=== PATIENT | female | born 1985 | race Caucasian/White ===

== ENCOUNTER 2019-12-04 11:35 | Emergency (ER) | payer BC ==
[2019-12-04 11:45] VITALS: BP 117/90
[2019-12-04] MEDS ORDERED: methylPREDNISolone Sodium Succinate 125 MG/2 ML SDV IM ONE (12:24)
[2019-12-04] MEDS ORDERED: Albuterol/Ipratropium 3.0-0.5 MG/3 ML Neb Soln NEB ONE (12:24)
--- NOTE | 2019-12-04 12:46 | EDM.PDOC ---
ED HPI GENERAL MEDICAL PROBLEM - General Chief Complaint: Respiratory Problem Stated Complaint: FLU Time Seen by Provider: 12/04/19 11:36 Source of Information: Reports: Patient History Limitations: Reports: No Limitations - History of Present Illness INITIAL COMMENTS - FREE TEXT/NARRATIVE: HISTORY AND PHYSICAL: History of present illness: Patient is a 34-year-old female who presents to the ED today with concern of cough and generalized body aches over the past 4 days. Patient states she has a history of asthma and has noticed that the cough is worsening her asthma symptoms. Patient states that she has increased use of her rescue inhaler and also uses her other inhalers to her at home. Patient denies any other symptoms or concerns. Patient denies fever, chills, chest pain, shortness of breath. Denies headache, neck stiff ness, change in vision, syncope, or near syncope. Denies nausea, vomiting, abdominal pain, diarrhea, constipation, or dysuria. Has not noted any blood in urine or stool. Patient has been eating and drinking appropriately. Review of systems: As per history of present illness and below otherwise all systems reviewed and negative. Past medical history: As per history of present illness and as reviewed below otherwise noncontributory. Surgical history: As per history of present illness and as reviewed below otherwise noncontributory. Social history: See social history for further information Family history: As per history of present illness and as reviewed below otherwise noncontributory. Physical exam: General: Patient is alert, oriented, and in no acute distress. Patient sitting comfortably on exam table. HEENT: Atraumatic, normocephalic, pupils equal and reactive bilaterally, negative for conjunctival pallor or scleral icterus, mucous membranes moist, TMs normal bilaterally, throat clear, neck supple, nontender, trachea midline. No drooling or trismus noted. No meningeal signs. No hot potato voice noted. Lungs: Clear to auscultation, breath sounds equal bilaterally, chest nontender. Dry cough on exam Heart: S1S2, regular rate and rhythm without overt murmur Abdomen: Soft, nondistended, nontender. Negative for masses or hepatosplenomegaly. Negative for costovertebral tenderness. Pelvis: Stable nontender. Genitourinary: Deferred. Rectal: Deferred. Skin: Intact, warm, dry. No lesions or rashes noted. Extremities: Atraumatic, negative for cords or calf pain. Neurovascular unremarkable. Neuro: Awake, alert, oriented. Cranial nerves II through XII unremarkable. Cerebellum unremarkable. Motor and sensory unremarkable throughout. Exam nonfocal. Notes: Patient's tachycardia did resolve after therapeutics. Discussed the importance for follow-up with a primary care provider. Voices understanding and is agreeable to plan of care. Denies any further questions or concerns at this time. Diagnostics: Influenza, CBC, CMP, serum hCG, chest x-ray, EKG Therapeutics: Duoneb, Solumedrol Prescription: Prednisone, Azithromycin Impression: Influenza B Right middle lobe lung opacity Asthma exacerbation Plan: 1. Take medication as prescribed. You can alternate ibuprofen and Tylenol as directed for pain and discomfort. 2. Follow-up with your primary care provider as discussed. Return to the ED as needed and as discussed. Definitive disposition and diagnosis as appropriate pending reevaluation and review of above. generalized Pain Score (Numeric/FACES): 4 - Related Data Allergies Allergy/AdvReac Type Severity Reaction Status Date / Time amoxicillin Allergy Itching Verified 12/04/19 11:45 animal dander Allergy Other Verified 12/04/19 11:45 Home Meds: Home Meds Budesonide/Formoterol Fumarate [Symbicort 80-4.5 MCG] 1 puff INH ASDIRECTED 03/20 [History] Montelukast [Singulair] 10 mg PO DAILY 12/04/19 [History] Non-Formulary Medication [NF Drug] 1 tab PO DAILY 12/04/19 [History] Past Medical History - Past Health History Medical/Surgical History: Denies Medical/Surgical History Respiratory History: Reports: Asthma Genitourinary History: Reports: Pyelonephritis [employer] History: Reports: - Infectious Disease History Infectious Disease History: Reports: Herpes - Past Surgical History HEENT Surgical History: Reports: Myringotomy w Tube(s), Oral Surgery Social & Family History - Family History Family Medical History: Noncontributory Cardiac: Reports: [place] - Tobacco Use Smoking Status *Q: Never Smoker - Recreational Drug Use Recreational Drug Use: No ED ROS GENERAL - Review of Systems Review Of Systems: Comprehensive ROS is negative, except as noted in HPI. ED EXAM, GENERAL - Physical Exam Exam: See Below (see dictation) Course - Vital Signs Last Recorded V/S: Last Vital Signs Temp 98.4 F 01/04/20 11:43 Pulse 100 12/04/19 13:23 Resp 20 12/04/19 13:23 BP 117/90 12/04/19 11:43 Pulse Ox 98 12/04/19 13:23 - Orders/Labs/Meds Orders: Active Orders 24 hr Category Date Time Status EKG Documentation Completion [RC] STAT Care 12/04/19 12:25 Active RT Aerosol Therapy [RC] ASDIRECTED Care 12/04/19 12:25 Active Labs: Laboratory Tests 12/04/19 12/04/19 12/04/19 Range/Units 12:31 12:31 12:31 WBC 3.20 L (4.0-11.0) K/uL RBC 4.80 (4.30-5.90) M/uL Hgb 14.2 (12.0-16.0) g/dL Hct 42.3 (36.0-46.0) % MCV 88.1 (80.0-98.0) fL MCH 29.6 (27.0-32.0) pg MCHC 33.6 (31.0-37.0) g/dL RDW Std Deviation 39.7 (28.0-62.0) fl RDW Coeff of Grace 12 (11.0-15.0) % Plt Count 182 (150-400) K/uL MPV 9.80 (7.40-12.00) fL Neut % (Auto) 55.0 (48.0-80.0) % Lymph % (Auto) 27.5 (16.0-40.0) % Hunt % (Auto) 13.8 (0.0-15.0) % Eos % (Auto) 3.4 (0.0-7.0) % Baso % (Auto) 0.3 (0.0-1.5) % Neut # (Auto) 1.8 (1.4-5.7) K/uL Lymph # (Auto) 0.9 (0.6-2.4) K/uL Hunt # (Auto) 0.4 (0.0-0.8) K/uL Eos # (Auto) 0.1 (0.0-0.7) K/uL Baso # (Auto) 0.0 (0.0-0.1) K/uL Nucleated RBC % 0.0 /100WBC Nucleated RBCs # 0 K/uL Sodium 138 (136-145) mmol/L Potassium 4.1 (3.5-5.1) mmol/L Chloride 103 (98-107) mmol/L Carbon Dioxide 24.1 (21.0-32.0) mmol/L BUN 15 (7.0-18.0) mg/dL Creatinine 1.0 (0.6-1.0) mg/dL Est Cr Clr Drug Dosing 72.29 mL/min Estimated GFR (MDRD) > 60.0 ml/min Glucose 111 H (74-106) mg/dL Calcium 8.9 (8.5-10.1) mg/dL Total Bilirubin 0.3 (0.2-1.0) mg/dL AST 21 (15-37) IU/L ALT 23 (14-63) IU/L Alkaline Phosphatase 45 L (46-116) U/L Total Protein 7.8 (6.4-8.2) g/dL Albumin 3.7 (3.4-5.0) g/dL Globulin 4.1 H (2.6-4.0) g/dL Albumin/Globulin Ratio 0.9 (0.9-1.6) HCG, Qual NEGATIVE (NEG) Meds: Medications Discontinued Medications Generic Name Dose Route Start Last Admin Trade Name Freq PRN Reason Stop Dose Admin Albuterol/Ipratropium 3 ml 12/04/19 12:24 12/04/19 12:32 Duoneb 3.0-0.5 Mg/3 Ml NEB 12/04/19 12:25 3 ml ONETIME ONE Administration Methylprednisolone Sodium Succinate 125 mg 12/04/19 12:24 12/04/19 13:22 Solu-Medrol IM 12/04/19 12:25 125 mg ONETIME ONE Administration Departure - Departure Time of Disposition: 14:36 Disposition: Home, Self-Care 01 Clinical Impression: Influenza B, Opacity of lung on imaging study Asthma exacerbation Qualifiers: Asthma severity: unspecified severity Asthma persistence: unspecified Qualified Code(s): J45.901 - Unspecified asthma with (acute) exacerbation - Discharge Information Referrals: Adriana Coto NP [Primary Care Provider] - Forms: ED Department Discharge Additional Instructions: The following information is given to patients seen in the emergency department who are being discharged to home. This information is to outline your options for follow-up care. We provide all patients seen in our emergency department with a follow-up referral. The need for follow-up, as well as the timing and circumstances, are variable depending upon the specifics of your emergency department visit. If you don't have a primary care physician on staff, we will provide you with a referral. We always advise you to contact your personal physician following an emergency department visit to inform them of the circumstance of the visit and for follow-up with them and/or the need for any referrals to a consulting specialist. The emergency department will also refer you to a specialist when appropriate. This referral assures that you have the opportunity for follow-up care with a specialist. All of these measure are taken in an effort to provide you with optimal care, which includes your follow-up. Under all circumstances we always encourage you to contact your private physician who remains a resource for coordinating your care. When calling for follow-up care, please make the office aware that this follow-up is from your recent emergency room visit. If for any reason you are refused follow-up, please contact the [facility] Emergency Department at and asked to speak to the emergency department charge nurse. [facility] [address] [place] [address] [id number] [id number] 1. Take medication as prescribed. You can alternate ibuprofen and Tylenol as directed for pain and discomfort. 2. Follow-up with your primary care provider as discussed. Return to the ED as needed and as discussed. Sepsis Event Note - Evaluation Sepsis Screening Result: No Definite Risk - Focused Exam Vital Signs: Vital Signs Temp Pulse Resp BP Pulse Ox 12/04/19 13:23 100 20 98 12/04/19 11:43 98.4 F 132 H 18 117/90 98 Date Exam was Performed: 12/04/19 Time Exam was Performed: 14:35 - My Orders Last 24 Hours: My Active Orders 12/04/19 12:25 EKG Documentation Completion [RC] STAT RT Aerosol Therapy [RC] ASDIRECTED - Assessment/Plan Last 24 Hours: My Active Orders 12/04/19 12:25 EKG Documentation Completion [RC] STAT RT Aerosol Therapy [RC] ASDIRECTED
[2019-12-04 13:05] LABS: BLOOD UREA NITROGEN,BUN 15 mg/dL (7.0-18.0); CARBON DIOXIDE,CO2 24.1 mmol/L (21.0-32.0); CHLORIDE,CL 103 mmol/L (98-107); GLUCOSE RANDOM 111 mg/dL (74-106); POTASSIUM,K 4.1 mmol/L (3.5-5.1); SODIUM,NA 138 mmol/L (136-145)
[2019-12-04 13:24] VITALS: PULSE 100
--- NOTE | 2019-12-04 14:18 | CR ---
HISTORY: Cough. FINDINGS: Two views of the chest are provided. There is slight streaky density seen at the right lung base medially and anteriorly which could represent early right middle lobe pneumonia. It is possible these findings could represent scarring. The upper portion of the right lung and left lung are clear. No findings for pleural effusion or pneumothorax. Cardiac silhouette size is within normal limits. IMPRESSION: Streaky opacity identified in the right middle lobe distribution which could represent early developing right middle lobe pneumonia. Alternative consideration would be possible scarring. Atelectasis is unlikely given normal lung expansion. Dictated by Mingo Priest MD @ Dec 04 2019 2:15PM Signed by Dr. Mingo Priest @ Dec 04 2019 2:17PM
== END 2019-12-04 14:45 | disposition home or self-care (01) ==
LOC: MW.ED 11:35
DX: J45.901 Unspecified asthma with (acute) exacerbation (principal); J10.1 Influenza due to other identified influenza virus with other respiratory manifestations; R91.8 Other nonspecific abnormal finding of lung field; Z88.0 Allergy status to penicillin; Z91.048 Other nonmedicinal substance allergy status; Z79.51 Long term (current) use of inhaled steroids
CPT/HCPCS: 36415; 71046; 80053; 84703; 85025; 87804; 93005; 94640; 96372; 99284; J2930; 99283; J7620-GY